=== PATIENT | female | born 1970 | race Caucasian/White ===

== ENCOUNTER 2021-04-04 23:21 | Emergency (ER) | payer MEDICARE ==
[~2021-04-04] VITALS: Ht 182.9 cm; Wt 128.0 kg
[2021-04-04 23:21] VITALS: BP 156/74
--- NOTE | 2021-04-05 00:05 | ER.PDOC ---
General Chief Complaint: Requesting Medical Care Stated Complaint: BLEEDING FROM PORT SITE TRAVEL OUT OF US: No Time seen by MD: 23:50 Source: patient, family Exam Limitations: no limitations History of Present Illness Initial Comments 51 y/o female on Hd comes here with right upper chest bleeding after her HD access port came out Some minor bleeding at the house Bleeding mostly stopped no other bleeding no chronic anticoagulation last HD today No Rx POLICE JUSTICE Timing/Duration: 1 hour Severity: mild Past Medical History Medical History: renal disease, other (obesity) Surgical History: other (right chest HD catheter) Family History Significant Family History: no pertinent family hx Social History Smoking: non-smoker Alcohol Use: none Reviewed Nursing Reviewed: Vital Signs, Abn. Noted Review of Systems Constitutional: denies no symptoms reported, denies see HPI, denies chills, denies diaphoresis, denies fever, denies malaise, denies weakness, denies other EENTM: denies no symptoms reported, denies see HPI, denies eye pain, denies blurred vision, denies tearing, denies double vision, denies ear pain, denies ear discharge, denies nose pain, denies nose congestion, denies throat pain, denies throat swelling, denies mouth pain, denies mouth swelling, denies other Respiratory: denies no symptoms reported, denies see HPI, denies cough, denies orthopnea, denies shortness of breath, denies stridor, denies wheezing, denies other Cardiovascular: denies no symptoms reported, denies see HPI, denies chest pain, denies edema, denies palpitations, denies syncope, denies other Gastrointestinal: denies no symptoms reported, denies see HPI, denies abdominal pain, denies constipation, denies diarrhea, denies nausea, denies vomiting, denies other Genitourinary: denies no symptoms reported, denies see HPI, denies discharge, denies dysuria, denies frequency, denies hematuria, denies pain, denies other Musculoskeletal: denies no symptoms reported, denies see HPI, denies back pain, denies gout, denies joint pain, denies joint swelling, denies muscle pain, denies muscle stiffness, denies neck pain, denies other Skin: denies no symptoms reported, denies see HPI, denies change in color, denies change in hair/nails, denies dryness, denies lesions, denies lumps, denies rash, denies other Psychiatric/Neurological: denies no symptoms reported, denies see HPI, denies anxiety, denies depressed, denies emotional problems, denies headache, denies numbness, denies paresthesia, denies pre-existing deficit, denies seizure, denies tingling, denies tremors, denies weakness, denies other Hematologic/Lymphatic: denies no symptoms reported, denies see HPI, denies anemia, denies blood clots, denies easy bleeding, denies easy bruising, denies swollen glands, denies other Immunological/Allergic: denies no symptoms reported, denies see HPI, denies food allergy, denies grass allergy, denies mold allergy, denies pollen allergy, denies HIV/AIDS, denies transplant All Other Systems: Reviewed and Negative Physical Exam General Appearance: No Apparent Distress, WD/WN EENT: eyes nml inspection, nml ENT inspection Neck: Non-Tender, Full Range of Motion Respiratory: chest non-tender, lungs clear, normal breath sounds CVS: reg rate & rhythm, no murmur, no gallop, pulses nml, nml capillary refill Gastrointestinal: Normal Bowel Sounds, No Organomegaly Extremities: Normal Range of Motion, Non-Tender Neurologic/Psychiatric: cylinder valve repairer II-XII NML as Tested, No Motor/Sensory Deficits Skin: Normal Color, Warm/Dry Comments right chest with small whole associated with HD catheter placement minor bleeding noted and dry no active bleeding Progress Progress applied pressure to the right chest area where HD was placed no further bleeding pressure dressing applied d/c home ER DEPART Departure Time of Disposition: 00:03 Disposition: 01 HOME / SELF CARE / HOMELESS Impression: Primary Impression: Bleeding at insertion site Additional Impression: ESRD (end stage renal disease) Condition: Stable Referrals: PCP,UNKNOWN (PCP) PRIMARY CARE PROVIDER Duration or Time Spent with Pa: 10 min Problem Qualifiers PONCHO NEGRON MD Apr 05, 2021 00:04
--- NOTE | 2021-04-05 00:30 | NUR ---
ARRIVAL TAKEN BY WHEELCHAIR TO ROOM. ALERT AND ORIENTED X3. ABLE TO TRANSFER SELF FROM WHEELCHAIR TO BED. DIALYSIS PORT TO RIGHT HAD STITCHES REMOVED BY DIALYSIS NURSE TODAY AND THE PORT CAME OUT THIS EVENING ABOUT 45MINUTES PRIOR TO ARRIVAL TO ER. PRESSURE HELD TO SITE. BLEEDING STOPPED. NO SIGN OF FIRMNESS OR DISCOLORATION NOTED TO SKIN AROUND THE SITE. DENIES PAIN TO SITE AT THIS TIME. PRESSURE DRESSING APPLIED.
[2021-04-05 00:41] VITALS: BP 148/72
== END 2021-04-05 00:42 | disposition home or self-care (01) ==
LOC: ER 23:21
DX: T82.838A Hemorrhage due to vascular prosthetic devices, implants and grafts, initial encounter (principal); N18.6 End stage renal disease; Z99.2 Dependence on renal dialysis
CPT/HCPCS: 99281